=== PATIENT | female | born 2000 | race Caucasian/White ===

== ENCOUNTER 2023-09-01 16:37 | Emergency (ER) | payer SELFPAY ==
[2023-09-01 16:40] VITALS: BP 149/87
[2023-09-01 17:03] LABS: COVID-19 Antigen Negative (Negative)
--- NOTE | 2023-09-01 17:38 | ED.GENMED ---
History of Present Illness
General
Chief Complaint: Cold/Flu/URI Symptoms
Source: patient
Time Seen by Provider: 09/01/23 17:30
Travel History
Have you had any contact with someone who has COVID-19?: No
Do you have any symptoms of coronavirus? Fever > 100 degrees, chills, cough, shortness of breath, sore throat, loss of taste or smell, muscle aches, or headache?: Yes
Symptoms:: cough
History of Present Illness
History of Present Illness:
22-year-old female with no significant past medical history presenting the emergency department for evaluation of nasal congestion and a yellowish nasal discharge for about 1 week, attempted [id number] measures but with minimal relief
prompting her to come to the ER today. She denies any fevers, chills, rigors, cough, otalgia, sore throat or any other concerns. Patient denies any recent travel or known sick contacts.
Past History
Past History
ED Past Medical History: None
ED Past Surgical History: None
Social History
Tobacco: Non-smoker
Alcohol: None
Drug: None
Personal: Single
Living: with family
Review of Systems
Review of Systems
All Other Systems: ROS reviewed and negative except as documented in HPI and ROS
Phy Exam
Physical Exam
Physical Exam:
GENERAL: Alert , in no apparent distress. Smiling and pleasant
EYE: conjunctiva clear
NECK: Supple
ENT: o/p clr, mmm. TMs normal bilateral
CARDIAC: Regular rate and rhythm
LUNGS: Clear breath sounds bilaterally, no acute respiratory distress, no wheezes/rales/rhonchi
NEUROLOGICAL: Alert and oriented
SKIN: Warm and dry, skin intact.
MUSCULOSKELETAL: well perfused.
PSYCH: Normal and appropriate interaction.
Scores
Heart Failure Risk
Heart Failure Risk Score: Not Applicable
Heart Score for Chest Pain Patients
STEMI patient?: Not applicable
Withdrawal Assessment of Alcohol
Withdrawal Assessment Completed?: Not applicable
Course
Orders/Labs/Results
Orders:
Orders
09/01/23 16:45
COVID-19 Antigen Urgent
Source: Nasal Swab
Influenza A+B Rapid Molecular Urgent
AYSHA Source: Nasal Swab
Specimen Description:
Vital Signs
Initial and Last Documented VS:
Initial Vital Signs
Temp Pulse Resp BP Pulse Ox
98.5 F 95 16 149/87 100
09/01/23 16:40 09/01/23 16:40 09/01/23 16:40 09/01/23 16:40 09/01/23 16:40
Last Documented Vital Signs
Temp Pulse Resp BP Pulse Ox
98.5 F 95 16 149/87 100
09/01/23 16:40 09/01/23 16:40 09/01/23 16:40 09/01/23 16:40 09/01/23 16:40
MDM/Problems Addressed
Differential Diagnosis Includes:
Sinusitis, COVID, flu, other viral etiology, I have minimal concern for a bacterial infection
MDM/Problems Addressed:
22-year-old female present emergency department for evaluation of sinus congestion x 1 week. She denies any fevers. She is very well-appearing and pleasant here. Ultimately I discussed with patient that I felt her symptoms were most likely viral
and she can continue revt-hwq-[id number] measures for symptomatic relief. Patient is requesting an antibiotic. I will give a prescription for Zithromax however I advised the patient that she should not take this medicine until at least Sunday or
Sunday if her symptoms persist and that they would likely resolve on their own. I discussed the side effects of these medications with the patient and she is agreeable with this plan.
*Pulse Oximetry
Patient hypoxic: no
*Critical Care Note
Total Time (30-74mins, 75-104mins- exclusive of procedures): Not Applicable
ED Attending Note
-
Portions of this chart may have been created with voice recognition software.� Occasional wrong word or��sound alike� substitutions may have occurred due to the inherent limitations of voice recognition software.
Discharge Plan
Departure
Patient Disposition: Home (Routine Discharge)
Date of Disposition: 09/01/23
Time of Disposition: 17:38
Patient with high blood pressure during this ER visit?: Yes
Discharge Problem:
Sinusitis
Instructions: Sinusitis, Adult (DC)
Prescriptions:
New
azithromycin [Zithromax] 250 mg tablet
250 mg PO DAILY Qty: 6 0RF
Rx Instructions:
Take 2 tabs day 1 and 1 tab for remaining days
Interventions
Interventions:
*Risk Screen - Suicide Last Done: 09/01/23 17:44
*General Assessment Last Done: 09/01/23 17:44
*Neglect/Abuse Screening Last Done: 09/01/23 17:44
ED- Fall Risk Assessment Last Done: 09/01/23 17:44
*ED COVID-19 Vaccine History Last Done: 09/01/23 16:40
*Nursing Disposition Last Done: 09/01/23 17:44
ED- Pulmonary Assessment Last Done: 09/01/23 17:43
Discharge Date and Time
Discharge Date/Time: 09/01/23 17:45
== END 2023-09-01 17:45 | disposition home or self-care (01) ==
LOC: EMR 16:37
PROVIDERS: EMERGENCY PHYSICIAN Emergency Medicine
DX: J32.9 Chronic sinusitis, unspecified (principal)
CPT/HCPCS: 99282; 87502; 87811